=== PATIENT | female | born 1950 | race Caucasian/White ===

== ENCOUNTER 2016-04-23 10:01 | Observation (INO) ==
[2016-04-23] MEDS ORDERED: Ipratropium/Albuterol Neb 3 ML IH ONE ×2 (10:30→12:37)
[2016-04-23] MEDS ORDERED: Aspirin 81 MG TAB.CHEW PO ONE (10:30)
[2016-04-23] MEDS ORDERED: 0.9 % Sodium Chloride 500 ML IVC ONE (10:30)
--- NOTE | 2016-04-23 10:41 | Emergency Department Note ---
Disposition Clinical Impression: COPD exacerbation, Shortness of breath Chest pain Qualifiers: Chest pain type: unspecified Qualified Code(s): R07.9 - Chest pain, unspecified Disposition: Admitted As Inpatient Condition: Good Time of Disposition: 12:42 SOB HPI - General Chief Complaint: ED Shortness of Breath/Dyspnea Stated Complaint: TALITA Time Seen by Provider: 04/23/16 10:16 Source: patient Limitations: no limitations Nursing Notes Reviewed: Yes Vital Signs Reviewed: Yes - History of Present Illness 66-year-old female complains of shortness of breath 1 week. Patient has a history of COPD. Patient's vital signs normal at time of admission. Patient states that she has been feeling short of breath for one week. And she has had episode 5 days ago of chest pain was 7 out of 10 substernal resolved with aspirin. Patient does not report radiation of pain. Patient states her shortness of breath continues to persist. Patient had a episode of chest pain substernal. This morning that resolved after a few seconds. - Related Data Home Medications Medication Instructions Recorded Confirmed Albuterol Sulfate [Albuterol 2 puff IH Q4HR PRN 11/23/15 04/23/16 Inhaler] Citalopram [CeleXA] 20 mg PO DAILY 11/23/15 04/23/16 Aspirin [Lo-Dose Aspirin EC] 81 mg PO DAILY 04/23/16 04/23/16 Nicotine Polacrilex [Nicotine 2 mg BC 10XD 04/23/16 04/23/16 Lozenge] Previous Rx's Medication Instructions Recorded PredniSONE 10 mg PO DAILY 5 Days 04/24/16 Allergies Allergy/AdvReac Type Severity Reaction Status Date / Time Penicillins [PCN] Allergy Itching Verified 04/23/16 14:22 ranitidine [From Zantac] Allergy Swelling Verified 04/23/16 14:22 of Lip/Tongue/Throat Sulfa (Sulfonamide Allergy Itching Verified 04/23/16 14:22 Antibiotics) sulfamethoxazole Allergy Itching Verified 04/23/16 14:22 [From Bactrim] trimethoprim [From Bactrim] Allergy Itching Verified 04/23/16 14:22 cephalexin AdvReac Itching Verified 04/23/16 14:22 codeine AdvReac Nausea Verified 04/23/16 14:22 Past Medical History - Past Medical History Medical history: Reports: COPD, hyperlipidemia Surgical history: Reports: cataract, hysterectomy Psychiatric history: Reports: anxiety, depression - Social History Smoking Status: Never smoker Smokeless Tobacco Status: No Alcohol use: Reports: none Drug use: Reports: none Physical Exam - General Limitations: no limitations General appearance: alert Course Course Narrative: Patient was seen and examined. The patient cardiac workup initiated. Chest x- ray and labs. A DuoNeb ordered aspirin administered - Reevaluation(s) Reevaluation #1: Patient receiving DuoNeb therapy and is doing well. Awaiting lab results Time: 11:20 Reevaluation #2: Patient feeling better but still feels like she has got some air trapping. We will give another DuoNeb treatment Time: 11:55 - Consultations Consultation #1: Dr. Brock has accepted for admission Time: 12:42 Vital Signs Temperature 97.6 F 04/23/16 10:04 Pulse Rate 69 04/23/16 10:04 Respiratory Rate 18 04/23/16 10:04 Blood Pressure 129/67 04/23/16 10:04 O2 Sat by Pulse Oximetry 96 04/23/16 10:04 Temperature 98.2 F 04/24/16 11:56 Pulse Rate 70 04/24/16 11:56 Respiratory Rate 16 04/24/16 16:12 Blood Pressure 112/68 04/24/16 11:56 O2 Sat by Pulse Oximetry 97 04/24/16 16:12 Oxygen Delivery Oxygen Delivery Room Air Shortness of Breath/Dyspnea - [facility] Narrative Medical decision making narrative: Ms. Dobbs is a 66-year-old female who complains of chest pain, and shortness of breath without fevers chills times one week. Patient with history of COPD on albuterol only. Patient's history of presentation concerning for COPD exacerbation secondary to possible pneumonia, ACS/UA, CHF, aortic dissection, PE. Patient also has prior history of workup for chest pain possible cardiac causes and had a stress test within the past 2 years but was found to be normal. Patient at time of exam is under with no pain symptoms. And low risk for PE. Patient has clear lung sounds bilaterally to auscultation and maintains O2 saturation 96% on room air. Patient's pulses bilateral upper and lower extremities equal and regular. Refill less than 2. Patient's labs were unremarkable. Troponin negative, chest x-ray shows no abnormalities. Patient had relief of symptoms with DuoNeb treatment. Patient still states that she feels like she cannot get all her breath out. Explained this at this is part of her COPD. Wali treat patient with another DuoNeb and 125 of methylprednisolone. Patient is heavily concern for her condition being cardiac related and does not feel safe going home. Patient's case was discussed with hospitalist Dr. Brock who is accepted patient for admission for cardiac workup. Patient agrees and understands treatment and plan. - Medical Records Medical records reviewed: Yes I reviewed the patient's medical records. - Lab Data Lab results reviewed: Yes I reviewed the patient's lab results. Result diagrams: 04/24/16 01:13 04/24/16 01:13 Lab Results 04/23/16 04/23/16 04/23/16 Range/Units 10:51 10:51 10:51 WBC 7.2 (4.3-11.1) K/mcL RBC 4.46 (3.82-4.97) M/mcL Hgb 12.9 (11.5-15.4) g/dL Hct 39.2 (35.3-44.9) % MCV 87.9 (83.0-100.0) fL MCH 28.9 (28.0-33.3) pg MCHC 32.9 (31.6-35.5) g/dL RDW 13.5 (11.5-14.5) % Plt Count 253 (140-400) K/mcL MPV 9.4 (9.4-12.4) fL Immature Gran % 0.4 (0-4) % Seg Neutrophils % 54.3 % Lymphocytes % 34.4 % Monocytes % 8.3 % Eosinophils % 2.0 % Basophils % 0.6 % Neutrophils # 3.9 (1.6-8.9) K/mcL Lymphocytes # 2.5 (0.6-4.6) K/mcL Monocytes # 0.6 (0.0-1.3) K/mcL Eosinophils # 0.1 (0.0-0.6) K/mcL Basophils # 0.0 (0.0-0.2) K/mcL D-Dimer (0-500) ng/mLFEU Sodium 139 (136-145) mEq/L Potassium 4.1 (3.5-4.5) mEq/L Chloride 107 (98-109) mEq/L Carbon Dioxide 21 (19-29) mEq/L BUN 17 (7-20) mg/dL Creatinine 0.66 (0.57-1.11) mg/dL Est GFR ( Amer) > 60 (> 60) Est GFR (Non-Af Amer) > 60 (> 60) BUN/Creatinine Ratio 26 (6-26) Glucose 95 (70-99) mg/dL Calculated Osmolality 289 (280-300) Calcium 8.8 (8.6-10.8) mg/dL Troponin I 0.00 (0-0.03) ng/mL Urine Color (Yellow) Urine Clarity (Clear) Urine pH (5.0-8.0) pH Units Ur Specific [place] (1.010-1.025) Urine Protein (Neg-Trace) mg/dL Urine Glucose (UA) (Normal) mg/dL Urine Ketones (Negative) mg/dL Urine Blood (Negative) Urine Nitrite (Negative) Urine Bilirubin (Negative) Urine Urobilinogen (Normal) mg/dL Ur Leukocyte Esterase (Negative) Ur Culture Indicated? (NO) 04/23/16 04/23/16 Range/Units 10:51 11:09 WBC (4.3-11.1) K/mcL RBC (3.82-4.97) M/mcL Hgb (11.5-15.4) g/dL Hct (35.3-44.9) % MCV (83.0-100.0) fL MCH (28.0-33.3) pg MCHC (31.6-35.5) g/dL RDW (11.5-14.5) % Plt Count (140-400) K/mcL MPV (9.4-12.4) fL Immature Gran % (0-4) % Seg Neutrophils % % Lymphocytes % % Monocytes % % Eosinophils % % Basophils % % Neutrophils # (1.6-8.9) K/mcL Lymphocytes # (0.6-4.6) K/mcL Monocytes # (0.0-1.3) K/mcL Eosinophils # (0.0-0.6) K/mcL Basophils # (0.0-0.2) K/mcL D-Dimer 247 (0-500) ng/mLFEU Sodium (136-145) mEq/L Potassium (3.5-4.5) mEq/L Chloride (98-109) mEq/L Carbon Dioxide (19-29) mEq/L BUN (7-20) mg/dL Creatinine (0.57-1.11) mg/dL Est GFR ( Amer) (> 60) Est GFR (Non-Af Amer) (> 60) BUN/Creatinine Ratio (6-26) Glucose (70-99) mg/dL Calculated Osmolality (280-300) Calcium (8.6-10.8) mg/dL Troponin I (0-0.03) ng/mL Urine Color Yellow (Yellow) Urine Clarity Clear (Clear) Urine pH 7.5 (5.0-8.0) pH Units Ur Specific [place] 1.015 (1.010-1.025) Urine Protein Negative (Neg-Trace) mg/dL Urine Glucose (UA) Normal (Normal) mg/dL Urine Ketones Negative (Negative) mg/dL Urine Blood Negative (Negative) Urine Nitrite Negative (Negative) Urine Bilirubin Negative (Negative) Urine Urobilinogen Normal (Normal) mg/dL Ur Leukocyte Esterase Negative (Negative) Ur Culture Indicated? NO (NO) Attestation Statement - Attestation Attestation: For this encounter, I have reviewed the resident, PRINTER OPERATOR, or PA documentation, treatment plan, and medical decision making; and I have had face to face time with this patient. 66-year-old female presents with chest pain and shortness of breath. Patient states the symptoms have been intermittent over the past couple days. Lungs have mild wheezing posterior aspects bilaterally. Patient improved after administration of DuoNeb. Initial troponin negative. Patient has heart score of 4. Patient be admitted for further care and evaluation.
[2016-04-23 10:58] LABS: Basophils % 0.6 %; Eosinophils # 0.1 K/mcL (0.0-0.6); Hematocrit 39.2 % (35.3-44.9); Hemoglobin 12.9 g/dL (11.5-15.4); Immature Granulocytes % 0.4 % (0-4); Lymphocytes # 2.5 K/mcL (0.6-4.6); Lymphocytes % 34.4 %; Mean Corpuscular HGB Conc 32.9 g/dL (31.6-35.5); Mean Corpuscular Hemoglobin 28.9 pg (28.0-33.3); Mean Corpuscular Volume 87.9 fL (83.0-100.0); Mean Platelet Volume 9.4 fL (9.4-12.4); Monocytes # 0.6 K/mcL (0.0-1.3); Monocytes % 8.3 %; Neutrophils # 3.9 K/mcL (1.6-8.9); Platelet Count 253 K/mcL (140-400); Red Blood Count 4.46 M/mcL (3.82-4.97); Red Cell Distribution Width 13.5 % (11.5-14.5); Segmented Neutrophils % 54.3 %
[2016-04-23 11:15] LABS: BUN/Creatinine Ratio 26 (6-26); Blood Urea Nitrogen 17 mg/dL (7-20); Calcium 8.8 mg/dL (8.6-10.8); Carbon Dioxide 21 mEq/L (19-29); Chloride 107 mEq/L (98-109); Glucose 95 mg/dL (70-99); Osmolality,Calculated 289 (280-300); Potassium 4.1 mEq/L (3.5-4.5); Sodium 139 mEq/L (136-145); eGFR For African Americans > 60 (> 60); eGFR For Non-African Americans > 60 (> 60)
[2016-04-23 11:24] LABS: Bilirubin,Urine Negative (Negative); Blood,Urine Negative (Negative); Clarity,Urine Clear (Clear); Color,Urine Yellow (Yellow); Glucose,Urine (UA) Normal (Normal); Ketones,Urine Negative (Negative); Leukocyte Esterase,Urine Negative (Negative); Nitrite,Urine Negative (Negative); PH,Urine 7.5 pH Units (5.0-8.0); Protein,Urine Negative (Neg-Trace); Specific Gravity,Urine 1.015 (1.010-1.025); Urobilinogen,Urine Normal (Normal)
[2016-04-23] MEDS ORDERED: methylPREDNISolone 125 MG/2 ML VIAL IVP ONE (11:56)
[2016-04-23] MEDS ORDERED: Naloxone 0.4 MG/ML INJ IVP PRN (13:39)
[2016-04-23] MEDS ORDERED: Acetaminophen 325 MG TABLET PO PRN (13:41)
[2016-04-23] MEDS ORDERED: 0.9 % Sodium Chloride 1,000 ML IVC SCH (13:45)
[2016-04-23] MEDS ORDERED: Nitroglycerin 0.4 MG TAB.SUBL SL PRN (13:51)
--- NOTE | 2016-04-23 14:12 | Internal Med History&Physical ---
<Ede Brock T - Last Filed: 04/23/16 15:54> Date of Encounter: 04/23/16 Internal Medicine - H&P: HPI History of present illness: Ms. Dobbs is a 66 year old female Internal Medicine - H&P: Meds Albuterol Sulfate [Albuterol Inhaler] 2 puff IH Q4HR PRN 11/23/15 [History] Citalopram [CeleXA] 20 mg PO DAILY 11/23/15 [History] Aspirin [Lo-Dose Aspirin EC] 81 mg PO DAILY 04/23/16 [History] Nicotine Polacrilex [Nicotine Lozenge] 2 mg BC 10XD 04/23/16 [History] Allergies Penicillins [PCN] Allergy (Verified 04/23/16 14:22) Itching ranitidine [From Zantac] Allergy (Verified 04/23/16 14:22) Swelling of Lip/Tongue/Throat Sulfa (Sulfonamide Antibiotics) Allergy (Verified 04/23/16 14:22) Itching sulfamethoxazole [From Bactrim] Allergy (Verified 04/23/16 14:22) Itching trimethoprim [From Bactrim] Allergy (Verified 04/23/16 14:22) Itching cephalexin Adverse Reaction (Verified 04/23/16 14:22) Itching codeine Adverse Reaction (Verified 04/23/16 14:22) Nausea All Systems PM: A 10-system review of systems was performed and is negative for pertinent findings except as documented above in the HPI. - Constitutional Vitals: Temp Pulse Resp BP Pulse Ox 98 F 81 16 114/53 97 04/23/16 15:17 04/23/16 15:17 04/23/16 15:17 04/23/16 15:17 04/23/16 15:17 Internal Med - H&P Results - Labs CBC & Chem 7: 04/23/16 10:51 04/23/16 10:51 - Attending Attestation I have independently seen and reviewed this patient I have examined him and reviewed his EMR Plan of care discussed with INTERLOCKING PAVEMENT INSTALLER 66-year-old female presented with atypical chest pain. PMH of COPD not on O2, Anxiety Examination is unremarkable, VSS, chest is clear, chest pain not reproducible, abdomen is benign, no pedal edema. Labs and imaging reviewed. No abnormalities detected. EKG NSR. Assessment/Plan: atypical chest pain. EKG/trop unremarkable, trend trops, obtain ECHO, stress test am. Resume anxiety meds Rest of details as in activities counselor documentation, which I have reviewed and agree with <Naomi Streeter - Last Filed: 04/23/16 17:06> Date of Encounter: 04/23/16 Time of Encounter: 13:00 Assessment and Plan (1) Chest pain Current visit: Yes Status: Acute 1 she has been having chest pain off and on since last week. First set cardiac troponins are negative. We will continue to cycle cardiac troponins 2 we will continue with aspirin we will obtain lipid profile no beta jairo at this time due to bradycardia 3 NPO after midnight Will obtain cardiac stress in the morning consult cardiology as needed (2) DVT prophylaxis Current visit: Yes Status: Acute (3) COPD (chronic obstructive pulmonary disease) Current visit: Yes Status: Acute 1 presently no wheezing noted will continue with bronchodilator as needed oxygen as needed Qualifiers: COPD type: emphysema Emphysema type: unspecified Qualified Code(s): J43.9 - Emphysema, unspecified (4) Shortness of breath Current visit: Yes Status: Acute 1 possibly related to worsening of COPD.-We will continue with oxygen as needed- we will perform a 6 minute walk eval prior to discharge 2 patient is to follow-up with suction roller as outpatient and consult as needed 3 continue with oxygen to maintain SPO2 greater than 92% Internal Medicine - H&P: HPI Chief complaint: CP Admitted From: Home Plans for Post Hospital Care: Home History of present illness: Ms. Dobbs is a 66 year old female with a past medical history of COPD. The patient has been experiencing shortness of breath off and on for approximately 2 weeks. She states that the shortness of breath is upon exertion and she is unable to lie flat in bed and she uses at least 2 pillows at night. She does have a history of COPD but she states she does not use any oxygen or inhalers when needed. She did have an episode of chest pain on Saturday of last week she described the pain as squeezing tightening was nonradiating and there were no alleviating or aggravating factors. She took some aspirin and she said the pain went away . This a.m. she continued to experience shortness of breath on exertion and had a brief episode of chest pain similar to the pain she experienced last week. She came to the ER for evaluation. ER records patient' s first set of cardiac troponins were negative EKG with normal sinus rhythm and no ST-T wave changes. Chest x-ray with no acute abnormalities. Lab work is unremarkable. She was admitted for further workup and evaluation. Upon assessment the patient denies any chest pain however does complain of shortness of breath when exerting. Her oxygen saturation is 87-88% on room air while lying in bed. When asked to sit forward the patient states she short of breath her SPO2 improves to 96-97%, the patient's respirations become slightly labored. She is sinus rhythm on monitor. It is noted the patient did have stress test 2 years ago which was negative for ischemia achieving 7 METs and 89 % of max predicted heart rate. She does see pulmonology as outpatient. I reviewed the case with Dr Brock who agrees with plan. Past Med Surg Social Fam HX - Past Medical History Medical history: COPD, hyperlipidemia Psychiatric history: anxiety, depression - Past Surgical History Surgical History: cataract, hysterectomy - Social History Smoking Status: Never smoker Smokeless Tobacco Status: No Alcohol use: none Drug use: none - Family History Father Brother Hx Family Cardiac Disorders: Yes (DVT PE) All Systems PM: A 10-system review of systems was performed and is negative for pertinent findings except as documented above in the HPI. - Constitutional Constitutional: no chills, no fever(s), no night sweats - EENT Eyes: no change in vision, no discharge, no pain, no photophobia - Cardiovascular Cardiovascular ROS IM: chest pain, dyspnea on exertion, orthopnea, no diaphoresis, no dyspnea, no lightheadedness, no palpitations, no syncope - Respiratory Respiratory: dyspnea on exertion - Gastrointestinal Gastrointestinal: no abdominal pain, no diarrhea, no hematemesis, no hematochezia, no melena, no nausea, no vomiting - Genitourinary Genitourinary: no change in urinary stream, no dysuria, no flank pain, no hematuria - Musculoskeletal Musculoskeletal ROS IM: no numbness, no tingling - Integumentary Integumentary IM: no rash, no unusual bruising - Neurological Neurological ROS: no confusion, no convulsions, no focal weakness, no numbness, no tingling, no tremor(s) - Constitutional Vitals: Temp Pulse Resp BP Pulse Ox 97.6 F 62 16 113/59 96 04/23/16 10:04 04/23/16 12:55 04/23/16 13:32 04/23/16 12:55 04/23/16 13:32 General appearance: Present: A&O X 3 - Head Head exam: Present: atraumatic, normocephalic - Neck Neck exam general surgery: Present: supple, trachea midline. Absent: lymphadenopathy - Respiratory Respiratory exam: Present: CTAB. Absent: accessory muscle use, rales, rhonchi, wheezes - Cardiovascular Cardiovascular exam: Present: RRR, +S1, +S2. Absent: diastolic murmur, gallop, rubs, systolic murmur - GI/Abdominal GI/Abdominal exam: Present: normal bowel sounds, soft, no peritoneal signs. Absent: distended, tenderness - Extremities Exam Extremities exam: Present: warm, radial pulses palpable and symetrical. Absent : calf tenderness, cyanotic, pedal edema - Neurological Exam Neurological exam: Present: CN II-XII intact, oriented X3, no focal deficits. Absent: pronater drift, facial droop, speech deficit - Skin Skin exam: Present: dry, intact Internal Med - H&P Results - Labs CBC & Chem 7: 04/23/16 10:51 04/23/16 10:51 Labs: Short CBC 04/23/16 Range/Units 10:51 WBC 7.2 (4.3-11.1) K/mcL Hgb 12.9 (11.5-15.4) g/dL Hct 39.2 (35.3-44.9) % Plt Count 253 (140-400) K/mcL Neutrophils # 3.9 (1.6-8.9) K/mcL BMP 04/23/16 10:51 Sodium 139 Potassium 4.1 Chloride 107 Carbon Dioxide 21 BUN 17 Creatinine 0.66 Glucose 95 Calcium 8.8 Cardiac Enzymes 04/23/16 Range/Units 10:51 Troponin I 0.00 (0-0.03) ng/mL Urine 04/23/16 Range/Units 11:09 Urine Color Yellow (Yellow) Urine Clarity Clear (Clear) Urine pH 7.5 (5.0-8.0) pH Units Ur Specific [place] 1.015 (1.010-1.025) Urine Protein Negative (Neg-Trace) mg/dL Urine Glucose (UA) Normal (Normal) mg/dL - EKG Data EKG shows normal: sinus rhythm Rate: normal - EKG Data Prior EKG available for review: yes Interpretation IM: normal EKG - Impressions ITS Impressions Chest X-Ray 04/23/16 10:31 IMPRESSION: No acute cardiopulmonary disease D/ / Garth Whitten MD / Garth Whitten MD Interpreting Provider: Garth Whitten MD - Diagnostic Studies Chest x-ray Additional comments: per radiology read, No acute changes
[2016-04-23] MEDS: *HR* Enoxaparin 40 MG/0.4 ML SYRINGE SQ SCH (17:12)
[2016-04-23] MEDS ORDERED: *HR* Enoxaparin 30 MG/0.3 ML SYRINGE SQ SCH (18:00)
[2016-04-24 01:34] LABS: Basophils % 0.1 %; Hematocrit 37.6 % (35.3-44.9); Hemoglobin 12.4 g/dL (11.5-15.4); Immature Granulocytes % 0.6 % (0-4); Lymphocytes # 1.2 K/mcL (0.6-4.6); Lymphocytes % 14.1 %; Mean Corpuscular Hemoglobin 29.2 pg (28.0-33.3); Mean Corpuscular Volume 88.5 fL (83.0-100.0); Mean Platelet Volume 9.4 fL (9.4-12.4); Monocytes # 0.5 K/mcL (0.0-1.3); Monocytes % 5.3 %; Neutrophils # 6.8 K/mcL (1.6-8.9); Platelet Count 282 K/mcL (140-400); Red Blood Count 4.25 M/mcL (3.82-4.97); Red Cell Distribution Width 13.6 % (11.5-14.5); Segmented Neutrophils % 79.9 %
[2016-04-24 01:41] LABS: BUN/Creatinine Ratio 22 (6-26); Blood Urea Nitrogen 14 mg/dL (7-20); Calcium 9.1 mg/dL (8.6-10.8); Carbon Dioxide 23 mEq/L (19-29); Chloride 110 mEq/L (98-109); Chol/HDL Ratio 4.6 (0-4.9); Cholesterol 210 mg/dL (< 200); Glucose 151 mg/dL (70-99); HDL Cholesterol 46 mg/dL (40-59); LDL Cholesterol,Calculated 134 mg/dL (0-99); Osmolality,Calculated 295 (280-300); Potassium 4.3 mEq/L (3.5-4.5); Sodium 141 mEq/L (136-145); Triglycerides 151 mg/dL (< 150); eGFR For African Americans > 60 (> 60); eGFR For Non-African Americans > 60 (> 60)
[2016-04-24] MEDS ORDERED: Regadenoson 0.4 MG/5 ML SYRINGE IVP ONE (06:24)
[2016-04-24] MEDS ORDERED: Aspirin Enteric Coated 81 MG Tablet PO SCH (09:00)
[2016-04-24 11:57] VITALS: BP 112/68
--- NOTE | 2016-04-24 12:29 | Nuclear Medicine Stress Report ---
Regadenoson Nuclear Stress Name: Violeta Dobbs Date of Study: 04/24/2016 Date: 1950 Ht: 63.0 in Medical Record#: [id number] Age: 66 Wt: 179.0 lb Gender: Female Order #: [id number] Location: [facility] Room: [facility] Supervising Provider: Min Reyes CNP Reading Physician: Silvano Tran MD, [facility] Ordering Physician: Josh Reardon MD Primary Care Physician: Elizabeth Callahan MD Stress Technologist: Nelda Guadarrama, STACKER AND SORTER OPERATOR, CCT, CPFT Junior Media Buyer: Rishabh Boss Indications: Shortness of breath, Chest Pain Impression: Patient reported chest heaviness with regadenoson. This is a non-specific finding. Diffuse non-specific ST-T wave changes were seen with regadenoson. Gated LVEF > 70%. Perfusion imaging was negative for ischemia or infarct. Stress Test Summary: Stress Test Type: Pharmacologic Regadenoson 0.4mg/5ml given IV Baseline Information: Initial Heart Rate: 63 Blood Pressure: 116/72 Stress Information: Test Terminated Due to (primary): As per protocol Maximum Blood Pressure: 132/60 Maximum Heart Rate: 104 Percent Maximum Heart Rate Achieved: 67 Double Product: [id number] Symptoms: Shortness of breath, Chest heaviness Nuclear Summary: SPECT myocardial perfusion imaging using [id number] Sestamibi given intravenously was performed at rest and following cardiac stress testing. The resting images were obtained following initial dose of 11.3 mCi. Following stress an additional dose of 33.8 mCi was given at peak exercise or 30 seconds post regadenoson infusion. Findings: Stress Note * Resting ECG demonstrated normal sinus rhythm. * No baseline arrhythmias were noted. * Patient reported chest heaviness with regadenoson. This is a non-specific finding. * No arrhythmias were noted during stress. * Diffuse non-specific ST-T wave changes were seen with regadenoson. Hemodynamic responses * Normal hemodynamic responses to pharmacologic stress. Study Quality * Study quality is average. Gated EF > 70% * Gated LVEF > 70%. Left Ventricle * The left ventricle is not dilated. * Normal Segmental Perfusion in rest. * Normal segmental perfusion in stress. TID * No evidence of transient ischemic dilatation. Updated by Silvano Tran MD, FACC on 04/24/2016 12:22:54 PM electronically signed on 04/24/2016 12:24:28 PM with status of Final
[2016-04-24] MEDS: *HR* Enoxaparin 40 MG/0.4 ML SYRINGE SQ SCH (12:37)
--- NOTE | 2016-04-24 16:23 | Discharge Summary ---
Date of Encounter: 04/24/16 Time of Encounter: 13:00 - Discharge Diagnosis (1) Chest pain Priority: Primary Status: Acute Qualifiers: Chest pain type: precordial pain Qualified Code(s): R07.2 - Precordial pain (2) COPD (chronic obstructive pulmonary disease) Priority: Secondary Status: Chronic Qualifiers: COPD type: emphysema Emphysema type: unspecified Qualified Code(s): J43.9 - Emphysema, unspecified (3) Anxiety Priority: Secondary Status: Chronic - Discharge Medications Prescriptions: PredniSONE 10 mg PO DAILY 5 Days Home Medications: Albuterol Sulfate [Albuterol Inhaler] 2 puff IH Q4HR PRN 11/23/15 [History] Citalopram [CeleXA] 20 mg PO DAILY 11/23/15 [History] Aspirin [Lo-Dose Aspirin EC] 81 mg PO DAILY 04/23/16 [History] Nicotine Polacrilex [Nicotine Lozenge] 2 mg BC 10XD 04/23/16 [History] PredniSONE 10 mg PO DAILY 5 Days 04/24/16 [Rx] Allergies/Adverse Reactions: Allergies Penicillins [PCN] Allergy (Verified 04/23/16 14:22) Itching ranitidine [From Zantac] Allergy (Verified 04/23/16 14:22) Swelling of Lip/Tongue/Throat Sulfa (Sulfonamide Antibiotics) Allergy (Verified 04/23/16 14:22) Itching sulfamethoxazole [From Bactrim] Allergy (Verified 04/23/16 14:22) Itching trimethoprim [From Bactrim] Allergy (Verified 04/23/16 14:22) Itching cephalexin Adverse Reaction (Verified 04/23/16 14:22) Itching codeine Adverse Reaction (Verified 04/23/16 14:22) Nausea Procedures/tests Complete & Pending: Procedures Performed prior 72 hours Category Date Time Status NM daniel perf SPECT multi [NM] Routine Exams 04/23/16 14:15 Taken SP pharm nuclear stress Routine Y 04/24/16 07:32 Completed Date of admission: 04/23/16 14:02 Primary care physician: Elizabeth Callahan MD Discharging clinician: Cate Santos Anticipated date of discharge: 04/24/16 - Patient Status Disposition: Home, Self-Care Condition: Good Functional capacity at discharge: independent ambulation Overall status at discharge: patient is back to baseline - Discharge Instructions Follow Up With: Elizabeth Callahan MD [Primary Care Provider] - 04/30/16 10:45 am (Please follow up as schedule...) - Diet and Activity Activity: resume usual activities as tolerated Diet: low fat, low cholesterol Hospital course: Ms. Dobbs is a 66 year old female with history of anxiety and hypertension was admitted with worsening shortness of breath and chest pain. Initial labs, EKG and chest x-ray done in the emergency room showed no acute abnormality. She was placed on telemetry monitoring which showed no acute events. Serial troponins remained negative for ACS. She was started on steroids and bronchodilators with improvement in his symptoms. Nuclear stress test was done which showed no evidence of ischemia or infarct. She is medically stable for discharge at this time with outpatient follow-up. - Time Spent with Patient Total time spent providing and/or coordinating discharge services: Greater than 30 minutes (40 min) - Constitutional Vitals: Temp Pulse Resp BP Pulse Ox 98.2 F 70 16 112/68 97 04/24/16 11:56 04/24/16 11:56 04/24/16 16:12 04/24/16 11:56 04/24/16 16:12 General appearance: Present: A&O X 3, answers questions appropriately - Respiratory Respiratory exam: Present: CTAB (coarse breath sounds B/L). Absent: accessory muscle use, rales, rhonchi, wheezes - Cardiovascular Cardiovascular exam: Present: RRR, +S1, +S2. Absent: diastolic murmur, gallop, rubs, systolic murmur
--- NOTE | 2016-04-24 17:07 | Electrocardiograph Report ---
[facility] Test Date: 2016-04-23 Pat Name: Violeta Dobbs Department: 104 Room: 2A13 Gender: F Emt Driver: LAKESHIA : 1950 Requested By: Jacinto Koehler Order Number: [id number] Reading MD: Elisabeth Davila Measurements Intervals Stewart Rate: 64 P: 50 CO: 154 QRS: 50 QRSD: 76 T: 44 QT: 411 QTc: 420 Interpretive Statements SINUS RHYTHM Electronically Signed On 04-24-16 17:05:38 EST by Elisabeth Davila
== END 2016-04-24 16:46 | disposition home or self-care (01) ==
LOC: 2ANU 10:01 → EMEROO 10:01 → SUATTDRO 14:02 → 2ANU 14:34
PROVIDERS: ADMIT Nurse Practitioner Acute Care; ATTEND Internal Medicine

== ENCOUNTER 2019-04-22 21:17 | Inpatient (IN) ==
[2019-04-22] MEDS ORDERED: Isovue-370 500 ML BOTTLE IVP ONE (21:47)
[2019-04-22] MEDS ORDERED: Ibuprofen 600 MG TABLET PO ONE (21:57)
[2019-04-22 21:59] LABS: Hematocrit 38.1 % (35.3-44.9); Hemoglobin 12.2 g/dL (11.5-15.4); Mean Corpuscular Hemoglobin 29.5 pg (28.0-33.3); Mean Platelet Volume 9.1 fL (9.4-12.4); Platelet Count 296 K/mcL (140-400); Red Blood Count 4.14 M/mcL (3.82-4.97); Red Cell Distribution Width 13.3 % (11.5-14.5); White Blood Count 11.1 K/mcL (4.3-11.1)
[2019-04-22 22:16] LABS: BUN/Creatinine Ratio 29 (6-26); Blood Urea Nitrogen 20 mg/dL (8-23); Calcium 9.2 mg/dL (8.6-10.3); Carbon Dioxide 25 mEq/L (23-29); Chloride 108 mEq/L (98-107); Glucose 100 mg/dL (70-105); Osmolality,Calculated 293 (280-300); Sodium 140 mEq/L (136-145); eGFR For African Americans > 60 (> 60); eGFR For Non-African Americans > 60 (> 60)
[2019-04-22] MEDS ORDERED: *HR* Heparin 5,000 UNIT/ML VIAL IVP PRN ×2 (23:31)
[2019-04-22] MEDS ORDERED: *HR* Heparin 5,000 UNIT/ML VIAL IVP ONE (23:31)
[2019-04-23 00:33] LABS: Prothrombin Time 11.2 Seconds (9.4-12.1)
[2019-04-23 00:40] LABS: Hemoglobin 11.8 g/dL (11.5-15.4); Mean Corpuscular HGB Conc 31.9 g/dL (31.6-35.5); Mean Corpuscular Hemoglobin 29.6 pg (28.0-33.3); Mean Platelet Volume 9.4 fL (9.4-12.4); Platelet Count 288 K/mcL (140-400); Red Blood Count 3.98 M/mcL (3.82-4.97); Red Cell Distribution Width 13.5 % (11.5-14.5); White Blood Count 11.7 K/mcL (4.3-11.1)
[2019-04-23] MEDS ORDERED: Naloxone 0.4 MG/ML INJ IVP PRN (00:56)
[2019-04-23] MEDS: Heparin 25,000 UNIT/250 ML D5W 25,000 UNIT/250 ML IV.SOLN IVC SCH ×2 (01:04→20:56)
[2019-04-23] MEDS ORDERED: Acetaminophen 325 MG TABLET PO ONE (05:00)
[2019-04-23] MEDS ORDERED: Ibuprofen 600 MG TABLET PO ONE (05:14)
[2019-04-23] MEDS: *HR* HYDROcodone/Acet 5/325 mg TABLET PO PRN (11:01)
[2019-04-23] MEDS: Ibuprofen 400 MG TABLET PO PRN ×2 (12:35→18:50)
[2019-04-23] MEDS: Acetaminophen 325 MG TABLET PO PRN (17:33)
[2019-04-24] MEDS: Ibuprofen 400 MG TABLET PO PRN (01:53)
[2019-04-24] MEDS: Acetaminophen 325 MG TABLET PO PRN (01:54)
[2019-04-24 06:25] LABS: Basophils # 0.1 K/mcL (0.0-0.2); Basophils % 0.7 %; Eosinophils # 0.2 K/mcL (0.0-0.6); Eosinophils % 2.2 %; Hematocrit 37.4 % (35.3-44.9); Hemoglobin 12.1 g/dL (11.5-15.4); Immature Granulocytes % 0.5 % (0-4); Lymphocytes # 2.3 K/mcL (0.6-4.6); Lymphocytes % 23.7 %; Mean Corpuscular HGB Conc 32.4 g/dL (31.6-35.5); Mean Corpuscular Volume 89.7 fL (83.0-100.0); Mean Platelet Volume 9.2 fL (9.4-12.4); Monocytes % 9.9 %; Neutrophils # 6.1 K/mcL (1.6-8.9); Platelet Count 291 K/mcL (140-400); Red Blood Count 4.17 M/mcL (3.82-4.97); Red Cell Distribution Width 13.6 % (11.5-14.5); White Blood Count 9.6 K/mcL (4.3-11.1)
[2019-04-24 06:43] LABS: BUN/Creatinine Ratio 14 (6-26); Blood Urea Nitrogen 10 mg/dL (8-23); Calcium 8.7 mg/dL (8.6-10.3); Carbon Dioxide 27 mEq/L (23-29); Chloride 104 mEq/L (98-107); Glucose 106 mg/dL (70-105); Osmolality,Calculated 287 (280-300); Potassium 4.2 mEq/L (3.5-5.1); Sodium 139 mEq/L (136-145); eGFR For African Americans > 60 (> 60); eGFR For Non-African Americans > 60 (> 60)
[2019-04-24] MEDS: *HR* HYDROcodone/Acet 5/325 mg TABLET PO PRN (07:24)
[2019-04-24] MEDS ORDERED: *HR* HYDROcodone/Acet 5/325 mg TABLET PO PRN (08:09)
[2019-04-24] MEDS ORDERED: Acetaminophen 325 MG TABLET PO PRN (08:09)
[2019-04-24] MEDS ORDERED: Ibuprofen 400 MG TABLET PO PRN (08:09)
[2019-04-24] MEDS ORDERED: Apixaban 5 MG TABLET PO SCH (10:38)
[2019-04-24 11:29] VITALS: BP 115/59
[2019-05-01] MEDS ORDERED: Apixaban 5 MG TABLET PO SCH (09:00)
== END 2019-04-24 12:40 | disposition home or self-care (01) | DRG 176 ==
LOC: CDU 21:17 → EMEROOARM 21:17 → SUATTDRO 04-23 01:09 → CDU 04-23 01:20 → 2ANU 04-23 17:02
PROVIDERS: ADMIT Internal Medicine; ATTEND Internal Medicine